=== PATIENT | male | born 1945 | race Two or more races ===

== ENCOUNTER 2023-11-12 16:58 | Inpatient (IN) | payer OTHER ==
[~2023-11-12] VITALS: Ht 182.9 cm; Wt 86.2 kg
[2023-11-12] MEDS ORDERED: SODIUM CHLORIDE 0.9% 500 ML IV ONE (18:30)
[2023-11-12 19:03] LABS: Basophils # (auto) 0.1 10 ^3/uL (0-0.2); Basophils % (auto) 0.7 % (0.0-2.0); Eosinophils # (auto) 0.1 10 ^3/uL (0-0.8); Eosinophils % (auto) 0.9 % (0.0-7.0); Hematocrit 36.9 % (41.0-53.0); Hemoglobin 12.6 g/dL (13.5-17.5); Lymphocytes # (auto) 1.3 10 ^3/uL (0.4-5.4); Lymphocytes % (auto) 14.2 % (10.0-50.0); Mean Corpuscular Hemoglobin 32.2 pg (28.0-32.0); Mean Corpuscular Volume 94.5 fL (80.0-100.0); Monocytes # (auto) 0.8 10 ^3/uL (0-1.3); Monocytes % (auto) 9.3 % (0.0-12.0); Neutrophils # (auto) 6.8 10 ^3/uL (1.6-8.6); Neutrophils % (auto) 74.9 % (37.0-80.0); White Blood Cell 9.1 10^3/uL (4.4-10.8)
[2023-11-12 19:19] LABS: Alanine Aminotransferase 30 U/L (7-40); Albumin 4.6 g/dL (3.2-4.8); Alkaline Phosphatase 75 U/L (46-116); Anion Gap 7 (5-15); Aspartate Aminotransferase 19 U/L (13-40); BUN/Creatinine Ratio 7.6 (10.0-20.0); Bilirubin, Total 0.5 mg/dL (0.2-1.0); Blood Urea Nitrogen 5 mg/dL (9-23); Calcium 9.5 mg/dL (8.5-10.1); Carbon Dioxide 25 mmol/L (20-30); Chloride 92 mmol/L (98-107); Glucose 98 mg/dL (74-106); Potassium 4.2 mmol/L (3.5-5.1); Sodium 124 mmol/L (136-145)
[2023-11-12 19:20] LABS: Total Protein 7.3 g/dL (5.7-8.2)
[2023-11-12 19:28] LABS: INR 1.02 (0.9-1.15); Partial Thromboplastin Time 36.2 SEC (24.5-34.5); Prothrombin Time 10.7 sec (9.3-11.8)
[2023-11-12 19:59] LABS: Erythrocyte Sedimentation Rate 53 mm/hr (0-20)
[2023-11-12] MEDS ORDERED: CLINDAMYCIN 600MG IV 50 ML IV ONE ×2 (20:45→23:52)
[2023-11-12 23:41] VITALS: PULSE 87; RESP 20; O2SAT 95
[2023-11-13] VITALS (8 sets, daily range): BP systolic 138–156; BP diastolic 78–100; PULSE 79–97; RESP 15–20; TEMP 97.6–98.7; O2SAT 94–100
[2023-11-13] MEDS ORDERED: ONDANSETRON HCL 4 MG/2 ML VIAL IV PRN (00:15)
[2023-11-13] MEDS ORDERED: hydrALAZINE HCL 10 MG TAB PO PRN (00:15)
[2023-11-13] MEDS ORDERED: ACETAMINOPHEN 325 MG TAB PO PRN (00:15)
[2023-11-13] MEDS ORDERED: PIPERACILLIN-TAZOB 3.375GM 100 ML IV SCH (00:15)
[2023-11-13] MEDS ORDERED: MORPHINE SULFATE INJ 2 MG/ml SYRG IV PRN (00:15)
[2023-11-13] MEDS ORDERED: VANCOMYCIN PER PHARMACY 0 MG IV SCH (00:15)
[2023-11-13] MEDS ORDERED: VANCOMYCIN 1GM/200ML 250 ML IV ONE ×3 (00:54→22:34)
[2023-11-13] MEDS ORDERED: VANCOMYCIN 1GM/200ML 250 ML IV SCH (01:00)
[2023-11-13] MEDS ORDERED: HYDROcodone-ACET 5/325MG TAB ONE ×3 (02:31→18:18)
[2023-11-13] MEDS: HYDROcodone-ACET 5/325MG TAB PO PRN ×3 (02:32→18:18)
[2023-11-13] MEDS ORDERED: PIPERACILLIN-TAZOB 3.375GM 100 ML IV ONE ×3 (05:05→23:44)
[2023-11-13] MEDS: PIPERACILLIN-TAZOB 3.375GM 100 ML IV SCH ×3 (05:21→23:53)
[2023-11-13] MEDS ORDERED: DEXTROSE (50%) 50ML SYRG IV PRN (06:00)
[2023-11-13 06:15] LABS: Anion Gap 8 (5-15); Carbon Dioxide 24 mmol/L (20-30); Chloride 98 mmol/L (98-107); Potassium 4.1 mmol/L (3.5-5.1)
[2023-11-13 06:16] LABS: Calcium 9.1 mg/dL (8.5-10.1); Sodium 130 mmol/L (136-145)
[2023-11-13 06:21] LABS: BUN/Creatinine Ratio 7.7 (10.0-20.0); Blood Urea Nitrogen 5 mg/dL (9-23); Glucose 114 mg/dL (74-106)
[2023-11-13] MEDS: InsuLIN REG 1unit/0.01ml Soln (100units/ml) SC SCH ×4 (07:00→21:43)
[2023-11-13] MEDS: ACCU-CHEK COMFORT CURVE STRIP VI SCH ×4 (07:05→21:43)
[2023-11-13] MEDS ORDERED: FAMOTIDINE 20 MG TAB PO SCH (10:00)
[2023-11-13] MEDS ORDERED: ENOXAPARIN SOD 40 MG/0.4 ML SYRINGE SC ONE (10:24)
[2023-11-13] MEDS ORDERED: FAMOTIDINE 20 MG TAB ONE (10:31)
[2023-11-13] MEDS: ENOXAPARIN SOD 40 MG/0.4 ML SYRINGE SC SCH (10:35)
[2023-11-13] MEDS: VANCOMYCIN 1GM/200ML 250 ML IV SCH ×2 (13:35→22:38)
[2023-11-13] MEDS ORDERED: HYDROcodone-ACET 10/325MG TAB ONE (15:11)
[2023-11-13] MEDS: HYDROcodone-ACET 10/325MG TAB PO PRN (15:13)
[2023-11-13] MEDS ORDERED: SIMV40TA18 PO (15:43)
[2023-11-13] MEDS ORDERED: FAMO-12 PO (15:43)
[2023-11-13] MEDS ORDERED: METO25TA93 PO (15:43)
[2023-11-13] MEDS ORDERED: ISOS1TAB28 PO (15:43)
[2023-11-13] MEDS ORDERED: LEVO88TA4 PO (15:43)
[2023-11-13] MEDS ORDERED: LOSA50TA46 PO (15:43)
[2023-11-13] MEDS ORDERED: GLIP-110 PO (15:43)
[2023-11-13] MEDS ORDERED: METF-370 PO (15:43)
[2023-11-13] MEDS ORDERED: BUPR-346 PO (15:43)
[2023-11-13] MEDS ORDERED: OXYB5TAB10 GT (15:47)
[2023-11-13] MEDS ORDERED: metFORMIN HYDROCHLORIDE 500 MG TAB ONE (18:12)
[2023-11-13] MEDS: metFORMIN HYDROCHLORIDE 500 MG TAB PO SCH (18:15)
[2023-11-13] MEDS ORDERED: ATORVASTATIN 20 MG TAB ONE (21:38)
[2023-11-13] MEDS: ATORVASTATIN 20 MG TAB PO SCH (21:42)
[2023-11-14] VITALS (7 sets, daily range): BP systolic 107–146; BP diastolic 56–88; PULSE 69–89; RESP 16–20; TEMP 98.1–99.2; O2SAT 95–97
[2023-11-14] MEDS ORDERED: HYDROcodone-ACET 5/325MG TAB ONE ×2 (04:13→13:39)
[2023-11-14] MEDS: HYDROcodone-ACET 5/325MG TAB PO PRN ×3 (04:16→22:01)
[2023-11-14 06:00] LABS: Chloride 98 mmol/L (98-107); Potassium 3.7 mmol/L (3.5-5.1); Sodium 131 mmol/L (136-145)
[2023-11-14 06:01] LABS: Anion Gap 6 (5-15); Calcium 8.7 mg/dL (8.7-10.4); Carbon Dioxide 27 mmol/L (20-30)
[2023-11-14 06:06] LABS: BUN/Creatinine Ratio 7.4 (10.0-20.0); Blood Urea Nitrogen < 5 mg/dL (9-23); Glucose 132 mg/dL (74-106)
[2023-11-14] MEDS ORDERED: metFORMIN HYDROCHLORIDE 500 MG TAB ONE ×2 (06:24→18:04)
[2023-11-14] MEDS ORDERED: LEVOTHYROXINE SODIUM 88 MCG TAB ONE (06:25)
[2023-11-14] MEDS: OXYBUTININ PO SCH (06:26)
[2023-11-14] MEDS: ACCU-CHEK COMFORT CURVE STRIP VI SCH ×4 (06:28→22:01)
[2023-11-14] MEDS: LEVOTHYROXINE SODIUM 88 MCG TAB PO SCH (06:28)
[2023-11-14] MEDS: InsuLIN REG 1unit/0.01ml Soln (100units/ml) SC SCH ×4 (06:30→22:04)
[2023-11-14] MEDS: metFORMIN HYDROCHLORIDE 500 MG TAB PO SCH ×2 (06:35→18:06)
[2023-11-14] MEDS ORDERED: PIPERACILLIN-TAZOB 3.375GM 100 ML IV ONE ×3 (07:01→20:59)
[2023-11-14] MEDS: PIPERACILLIN-TAZOB 3.375GM 100 ML IV SCH ×3 (07:05→21:07)
[2023-11-14] MEDS ORDERED: HYDROcodone-ACET 10/325MG TAB ONE ×2 (09:00→16:50)
[2023-11-14] MEDS ORDERED: VANCOMYCIN 1GM/200ML 250 ML IV ONE ×2 (09:01→18:04)
[2023-11-14] MEDS: HYDROcodone-ACET 10/325MG TAB PO PRN ×2 (09:04→17:04)
[2023-11-14] MEDS: VANCOMYCIN 1GM/200ML 250 ML IV SCH ×2 (09:04→18:14)
[2023-11-14] MEDS: BUPROPION 300 MG PO SCH (10:00)
[2023-11-14] MEDS ORDERED: GLIPIZIDE 5 MG PO SCH (10:00)
[2023-11-14] MEDS ORDERED: glipiZIDE 5 MG TAB ONE (10:48)
[2023-11-14] MEDS ORDERED: ISOSORBIDE MONONITRATE ER 60 MG TAB PO ONE (10:49)
[2023-11-14] MEDS ORDERED: ENOXAPARIN SOD 40 MG/0.4 ML SYRINGE SC ONE (10:49)
[2023-11-14] MEDS ORDERED: buPROPion HCL 100 MG TAB ONE (10:49)
[2023-11-14] MEDS ORDERED: LOSARTAN POTASSIUM 50 MG TAB ONE (10:50)
[2023-11-14] MEDS ORDERED: FAMOTIDINE 20 MG TAB ONE (10:50)
[2023-11-14] MEDS ORDERED: METOPROLOL SUCCINATE XL 50 MG TAB PO ONE (10:50)
[2023-11-14] MEDS ORDERED: buPROPion HCL 100 MG TAB PO ONE (11:00)
[2023-11-14] MEDS ORDERED: glipiZIDE 5 MG TAB PO ONE (11:00)
[2023-11-14] MEDS: GLIPIZIDE 5 MG PO SCH (11:19)
[2023-11-14] MEDS: FAMOTIDINE 20 MG TAB PO SCH (11:20)
[2023-11-14] MEDS: METOPROLOL SUCCINATE XL 50 MG TAB PO SCH (11:22)
[2023-11-14] MEDS: LOSARTAN POTASSIUM 50 MG TAB PO SCH (11:23)
[2023-11-14] MEDS: ISOSORBIDE MONONITRATE ER 60 MG TAB PO SCH (11:23)
[2023-11-14] MEDS: ENOXAPARIN SOD 40 MG/0.4 ML SYRINGE SC SCH (11:24)
[2023-11-14] MEDS ORDERED: ATORVASTATIN 20 MG TAB ONE (20:59)
[2023-11-14] MEDS: ATORVASTATIN 20 MG TAB PO SCH (21:07)
[2023-11-14] MEDS ORDERED: guaiFENesin-DM 100/10mg/5ml SYR ONE (21:47)
[2023-11-14] MEDS ORDERED: InsuLIN REG 1unit/0.01ml Soln (100units/ml) ONE (21:58)
[2023-11-15] VITALS (7 sets, daily range): BP systolic 127–158; BP diastolic 63–80; PULSE 62–83; RESP 16–22; TEMP 97.7–98.5; O2SAT 94–97
[2023-11-15] MEDS: VANCOMYCIN 1GM/200ML 250 ML IV SCH ×2 (04:50→15:36)
[2023-11-15] MEDS: HYDROcodone-ACET 5/325MG TAB PO PRN ×2 (05:01→12:20)
[2023-11-15] MEDS: PIPERACILLIN-TAZOB 3.375GM 100 ML IV SCH ×3 (06:24→21:37)
[2023-11-15] MEDS: LEVOTHYROXINE SODIUM 88 MCG TAB PO SCH (06:27)
[2023-11-15] MEDS: metFORMIN HYDROCHLORIDE 500 MG TAB PO SCH ×2 (06:27→17:22)
[2023-11-15] MEDS: ACCU-CHEK COMFORT CURVE STRIP VI SCH ×4 (06:27→21:41)
[2023-11-15] MEDS: GLIPIZIDE 5 MG PO SCH (06:29)
[2023-11-15] MEDS: OXYBUTININ PO SCH (06:30)
[2023-11-15] MEDS: InsuLIN REG 1unit/0.01ml Soln (100units/ml) SC SCH ×4 (06:33→21:41)
[2023-11-15 06:36] LABS: Chloride 96 mmol/L (98-107); Potassium 3.8 mmol/L (3.5-5.1); Sodium 130 mmol/L (136-145)
[2023-11-15 06:37] LABS: Anion Gap 7 (5-15); Carbon Dioxide 27 mmol/L (20-30)
[2023-11-15 06:42] LABS: BUN/Creatinine Ratio 7.7 (10.0-20.0); Blood Urea Nitrogen 6 mg/dL (9-23); Glucose 143 mg/dL (74-106)
[2023-11-15] MEDS: HYDROcodone-ACET 10/325MG TAB PO PRN ×2 (09:26→21:46)
[2023-11-15] MEDS: BUPROPION 300 MG PO SCH (10:00)
[2023-11-15] MEDS ORDERED: buPROPion HCL 100 MG TAB PO SCH (10:00)
[2023-11-15] MEDS: LOSARTAN POTASSIUM 50 MG TAB PO SCH (12:13)
[2023-11-15] MEDS: ENOXAPARIN SOD 40 MG/0.4 ML SYRINGE SC SCH (12:13)
[2023-11-15] MEDS: ISOSORBIDE MONONITRATE ER 60 MG TAB PO SCH (12:14)
[2023-11-15] MEDS: FAMOTIDINE 20 MG TAB PO SCH (12:14)
[2023-11-15] MEDS: METOPROLOL SUCCINATE XL 50 MG TAB PO SCH (12:14)
[2023-11-15] MEDS: ATORVASTATIN 20 MG TAB PO SCH (21:36)
[2023-11-16] MEDS: VANCOMYCIN 1GM/200ML 250 ML IV SCH ×2 (01:00→11:52)
[2023-11-16 05:00] VITALS: BP 130/70; PULSE 69; RESP 22; TEMP 97.7; O2SAT 97
[2023-11-16] MEDS: PIPERACILLIN-TAZOB 3.375GM 100 ML IV SCH ×3 (05:40→22:35)
[2023-11-16] MEDS: LEVOTHYROXINE SODIUM 88 MCG TAB PO SCH (06:21)
[2023-11-16] MEDS: metFORMIN HYDROCHLORIDE 500 MG TAB PO SCH ×2 (06:21→18:00)
[2023-11-16] MEDS: InsuLIN REG 1unit/0.01ml Soln (100units/ml) SC SCH ×4 (06:22→22:59)
[2023-11-16] MEDS: ACCU-CHEK COMFORT CURVE STRIP VI SCH ×4 (06:22→22:36)
[2023-11-16] MEDS: HYDROcodone-ACET 5/325MG TAB PO PRN ×2 (06:23→14:17)
[2023-11-16] MEDS: OXYBUTININ PO SCH (06:27)
[2023-11-16] MEDS: GLIPIZIDE 5 MG PO SCH (06:27)
[2023-11-16 08:00] VITALS: PULSE 74
[2023-11-16 08:53] VITALS: BP 131/80; PULSE 75; RESP 18; TEMP 97.8; O2SAT 97
[2023-11-16] MEDS: ISOSORBIDE MONONITRATE ER 60 MG TAB PO SCH (09:37)
[2023-11-16] MEDS: LOSARTAN POTASSIUM 50 MG TAB PO SCH (09:37)
[2023-11-16] MEDS: FAMOTIDINE 20 MG TAB PO SCH (09:37)
[2023-11-16] MEDS: BUPROPION 300 MG PO SCH (09:37)
[2023-11-16] MEDS: ENOXAPARIN SOD 40 MG/0.4 ML SYRINGE SC SCH (09:37)
[2023-11-16] MEDS: METOPROLOL SUCCINATE XL 50 MG TAB PO SCH (09:38)
[2023-11-16 12:58] VITALS: BP 129/79; PULSE 78; RESP 18; TEMP 97.9; O2SAT 97
[2023-11-16 20:00] VITALS: PULSE 69
[2023-11-16 22:00] VITALS: BP 122/72; PULSE 76; RESP 16; TEMP 98.2; O2SAT 96
[2023-11-16] MEDS: ATORVASTATIN 20 MG TAB PO SCH (22:36)
[2023-11-17] VITALS (8 sets, daily range): BP systolic 93–150; BP diastolic 57–76; PULSE 57–80; RESP 14–20; TEMP 97.6–98.5; O2SAT 91–97
[2023-11-17] MEDS: PIPERACILLIN-TAZOB 3.375GM 100 ML IV SCH ×3 (05:25→22:34)
[2023-11-17] MEDS: ACCU-CHEK COMFORT CURVE STRIP VI SCH ×4 (05:56→22:00)
[2023-11-17] MEDS: OXYBUTININ PO SCH (05:57)
[2023-11-17] MEDS: InsuLIN REG 1unit/0.01ml Soln (100units/ml) SC SCH ×4 (05:57→22:31)
[2023-11-17] MEDS: metFORMIN HYDROCHLORIDE 500 MG TAB PO SCH ×2 (05:57→18:00)
[2023-11-17] MEDS: LEVOTHYROXINE SODIUM 88 MCG TAB PO SCH (05:57)
[2023-11-17] MEDS: GLIPIZIDE 5 MG PO SCH (05:58)
[2023-11-17 07:03] LABS: INR 1.04 (0.9-1.15); Prothrombin Time 10.9 sec (9.3-11.8)
[2023-11-17] MEDS: HYDROcodone-ACET 10/325MG TAB PO PRN ×2 (08:40→22:48)
[2023-11-17] MEDS: ENOXAPARIN SOD 40 MG/0.4 ML SYRINGE SC SCH (10:00)
[2023-11-17] MEDS: FAMOTIDINE 20 MG TAB PO SCH (10:15)
[2023-11-17] MEDS: BUPROPION 300 MG PO SCH (10:15)
[2023-11-17] MEDS: ISOSORBIDE MONONITRATE ER 60 MG TAB PO SCH (10:16)
[2023-11-17] MEDS: LOSARTAN POTASSIUM 50 MG TAB PO SCH (10:16)
[2023-11-17] MEDS: METOPROLOL SUCCINATE XL 50 MG TAB PO SCH (10:17)
[2023-11-17] MEDS ORDERED: IODIXANOL 320MG/ML 100ML BTL IV ONE ×3 (14:15→16:04)
[2023-11-17] MEDS ORDERED: LIDOCAINE 2%HCL (LOCAL ANESTH.) INJ 20ML MDV ONE (14:15)
[2023-11-17] MEDS ORDERED: ANGIOMAX 250 MG VIAL IV ONE ×3 (14:50→18:16)
[2023-11-17] MEDS ORDERED: MIDAZOLAM HCL 2MG/2ML 2ml VIAL (1mg/ml) ONE ×2 (14:51→16:57)
[2023-11-17] MEDS ORDERED: SODIUM CHL 0.9% 50 ML ONE ×3 (14:51→18:16)
[2023-11-17] MEDS ORDERED: fentaNYL CITRATE 100 MCG/2 ML VL ONE (14:51)
[2023-11-17] MEDS ORDERED: HYDROmorphone HCL 2 MG/ML VL/or syr ONE (16:23)
[2023-11-17] MEDS ORDERED: CLOPIDOGREL 300 MG TAB ONE (19:08)
[2023-11-17] MEDS ORDERED: ASPirin 325 MG TAB ONE (19:08)
[2023-11-17 21:54] LABS: Basophils # (auto) 0 10 ^3/uL (0-0.2); Basophils % (auto) 0.4 % (0.0-2.0); Eosinophils # (auto) 0.2 10 ^3/uL (0-0.8); Eosinophils % (auto) 1.8 % (0.0-7.0); Hematocrit 32.9 % (41.0-53.0); Hemoglobin 11.4 g/dL (13.5-17.5); Lymphocytes # (auto) 0.7 10 ^3/uL (0.4-5.4); Lymphocytes % (auto) 8.2 % (10.0-50.0); Mean Corpuscular Hemoglobin 32.9 pg (28.0-32.0); Mean Corpuscular Hgb Conc. 34.5 g/dL (32.0-36.0); Mean Corpuscular Volume 95.3 fL (80.0-100.0); Monocytes # (auto) 0.9 10 ^3/uL (0-1.3); Monocytes % (auto) 9.9 % (0.0-12.0); Neutrophils # (auto) 6.9 10 ^3/uL (1.6-8.6); Neutrophils % (auto) 79.7 % (37.0-80.0); Red Blood Cells 3.46 10^6/uL (4.5-5.90); Red Cell Distribution Width 11.8 % (11.8-14.3); White Blood Cell 8.7 10^3/uL (4.4-10.8)
[2023-11-17] MEDS: ATORVASTATIN 20 MG TAB PO SCH (22:34)
[2023-11-18] VITALS (7 sets, daily range): BP systolic 122–153; BP diastolic 54–78; PULSE 58–77; RESP 13–21; TEMP 97.6–98.9; O2SAT 93–100
[2023-11-18] MEDS: GLIPIZIDE 5 MG PO SCH (05:23)
[2023-11-18] MEDS: LEVOTHYROXINE SODIUM 88 MCG TAB PO SCH (05:23)
[2023-11-18] MEDS: OXYBUTININ PO SCH (05:23)
[2023-11-18] MEDS: PIPERACILLIN-TAZOB 3.375GM 100 ML IV SCH ×3 (05:23→21:21)
[2023-11-18] MEDS: metFORMIN HYDROCHLORIDE 500 MG TAB PO SCH ×2 (05:23→17:35)
[2023-11-18] MEDS: ACCU-CHEK COMFORT CURVE STRIP VI SCH ×4 (05:47→21:33)
[2023-11-18] MEDS: InsuLIN REG 1unit/0.01ml Soln (100units/ml) SC SCH ×4 (05:47→21:43)
[2023-11-18] MEDS: METOPROLOL SUCCINATE XL 50 MG TAB PO SCH (08:22)
[2023-11-18] MEDS: HYDROcodone-ACET 10/325MG TAB PO PRN ×2 (08:24→18:44)
[2023-11-18] MEDS: LOSARTAN POTASSIUM 50 MG TAB PO SCH (08:24)
[2023-11-18] MEDS: ISOSORBIDE MONONITRATE ER 60 MG TAB PO SCH (08:25)
[2023-11-18] MEDS: ASPirin 81 mg TAB PO SCH (08:25)
[2023-11-18] MEDS: FAMOTIDINE 20 MG TAB PO SCH (08:26)
[2023-11-18] MEDS: BUPROPION 300 MG PO SCH (08:33)
[2023-11-18] MEDS: RIVAROXABAN 2.5 MG TAB PO SCH ×2 (09:47→22:00)
[2023-11-18] MEDS: CLOPIDOGREL BISULFATE 75 MG TAB PO SCH (09:47)
[2023-11-18] MEDS ORDERED: BUPIVACAINE HCL 50 ML ONE (11:39)
[2023-11-18] MEDS ORDERED: LIDOCAINE HCL (LOCAL ANESTH.) 0.5 % 50ML MDV IJ ONE (11:39)
[2023-11-18] MEDS ORDERED: DAKINS HALF STR 0.25% (NaHypochlorite) 473 ML TOPICAL SOL TOP ONE (11:45)
[2023-11-18] MEDS ORDERED: MEPERIDINE HCL (25 MG/ML) 1ML VIAL ONE (12:46)
[2023-11-18] MEDS ORDERED: MIDAZOLAM HCL 2MG/2ML 2ml VIAL (1mg/ml) ONE (12:46)
[2023-11-18] MEDS ORDERED: fentaNYL CITRATE 100 MCG/2 ML VL ONE (12:46)
[2023-11-18] MEDS ORDERED: PROPOFOL 10 MG/ML 20 ML IV ONE (13:23)
[2023-11-18] MEDS ORDERED: DexAMETHasone SOD PHOS 10MG/1ML VIAL INJ ONE (13:23)
[2023-11-18] MEDS ORDERED: ceFAZolin 1GM VL ONE (13:24)
[2023-11-18] MEDS ORDERED: MIDAZOLAM HCL 2MG/2ML 2ml VIAL (1mg/ml) IV PRN (15:00)
[2023-11-18] MEDS ORDERED: ONDANSETRON HCL 4 MG/2 ML VIAL IV PRN (15:00)
[2023-11-18] MEDS ORDERED: HYDROmorphone HCL 2 MG/ML VL/or syr IV PRN (15:00)
[2023-11-18] MEDS ORDERED: LABETALOL HCL 5 MG/ML 4ML SYRINGE IV PRN (15:00)
[2023-11-18] MEDS ORDERED: ePHEDrine SULFATE 50 MG/ML AMP IV PRN (15:00)
[2023-11-18] MEDS ORDERED: MORPHINE SULFATE 4 MG/ML SYR/VIAL IV PRN (15:00)
[2023-11-18] MEDS ORDERED: VANCOMYCIN 1GM/200ML 200 ML IV ONE (16:00)
[2023-11-18] MEDS: HYDROcodone-ACET 5/325MG TAB PO PRN (21:21)
[2023-11-18] MEDS: ATORVASTATIN 20 MG TAB PO SCH (21:21)
[2023-11-19] VITALS (7 sets, daily range): BP systolic 113–167; BP diastolic 64–81; PULSE 64–92; RESP 15–18; TEMP 97.3–98.3; O2SAT 92–98
[2023-11-19] MEDS: HYDROcodone-ACET 10/325MG TAB PO PRN ×4 (02:51→21:38)
[2023-11-19] MEDS: LEVOTHYROXINE SODIUM 88 MCG TAB PO SCH (05:45)
[2023-11-19] MEDS: metFORMIN HYDROCHLORIDE 500 MG TAB PO SCH ×2 (05:45→17:38)
[2023-11-19] MEDS: PIPERACILLIN-TAZOB 3.375GM 100 ML IV SCH ×3 (05:45→21:38)
[2023-11-19] MEDS: GLIPIZIDE 5 MG PO SCH (05:46)
[2023-11-19] MEDS: OXYBUTININ PO SCH (05:46)
[2023-11-19] MEDS: ACCU-CHEK COMFORT CURVE STRIP VI SCH ×4 (05:46→21:38)
[2023-11-19] MEDS: InsuLIN REG 1unit/0.01ml Soln (100units/ml) SC SCH ×4 (05:53→21:43)
[2023-11-19] MEDS: CLOPIDOGREL BISULFATE 75 MG TAB PO SCH (09:26)
[2023-11-19] MEDS: ASPirin 81 mg TAB PO SCH (09:26)
[2023-11-19] MEDS: ISOSORBIDE MONONITRATE ER 60 MG TAB PO SCH (09:27)
[2023-11-19] MEDS: FAMOTIDINE 20 MG TAB PO SCH (09:27)
[2023-11-19] MEDS: LOSARTAN POTASSIUM 50 MG TAB PO SCH (09:28)
[2023-11-19] MEDS: METOPROLOL SUCCINATE XL 50 MG TAB PO SCH (09:28)
[2023-11-19] MEDS: BUPROPION 300 MG PO SCH (09:29)
[2023-11-19] MEDS: RIVAROXABAN 2.5 MG TAB PO SCH ×2 (09:29→21:39)
[2023-11-19] MEDS: ATORVASTATIN 20 MG TAB PO SCH (21:38)
[2023-11-20 05:00] VITALS: BP 153/79; PULSE 77; RESP 18; TEMP 97.5; O2SAT 98
[2023-11-20] MEDS: PIPERACILLIN-TAZOB 3.375GM 100 ML IV SCH ×2 (05:22→14:03)
[2023-11-20] MEDS: LEVOTHYROXINE SODIUM 88 MCG TAB PO SCH (06:20)
[2023-11-20] MEDS: ACCU-CHEK COMFORT CURVE STRIP VI SCH ×2 (06:21→11:38)
[2023-11-20] MEDS: GLIPIZIDE 5 MG PO SCH (06:21)
[2023-11-20] MEDS: metFORMIN HYDROCHLORIDE 500 MG TAB PO SCH (06:21)
[2023-11-20] MEDS: OXYBUTININ PO SCH (06:21)
[2023-11-20] MEDS: InsuLIN REG 1unit/0.01ml Soln (100units/ml) SC SCH ×2 (06:26→11:30)
[2023-11-20 08:00] VITALS: PULSE 75; PULSE 84; RESP 18; O2SAT 94
[2023-11-20 09:00] VITALS: BP 169/83; PULSE 75; RESP 18; TEMP 97.5; O2SAT 94
[2023-11-20] MEDS: HYDROcodone-ACET 10/325MG TAB PO PRN (09:06)
[2023-11-20] MEDS: LOSARTAN POTASSIUM 50 MG TAB PO SCH (09:19)
[2023-11-20] MEDS: METOPROLOL SUCCINATE XL 50 MG TAB PO SCH (09:19)
[2023-11-20] MEDS: ISOSORBIDE MONONITRATE ER 60 MG TAB PO SCH (09:20)
[2023-11-20] MEDS: ASPirin 81 mg TAB PO SCH (09:21)
[2023-11-20] MEDS: CLOPIDOGREL BISULFATE 75 MG TAB PO SCH (09:21)
[2023-11-20] MEDS: FAMOTIDINE 20 MG TAB PO SCH (09:21)
[2023-11-20] MEDS: BUPROPION 300 MG PO SCH (09:22)
[2023-11-20] MEDS: RIVAROXABAN 2.5 MG TAB PO SCH (09:23)
[2023-11-20] MEDS ORDERED: DAKINS QUARTER STR 0.125% (NaHypochlorite) 473 ML TOPICAL SOL TOP SCH (10:00)
[2023-11-20] MEDS ORDERED: VANCOMYCIN 1GM/200ML 200 ML IV ONE (11:00)
[2023-11-20] MEDS ORDERED: RIVA2.5T PO (12:39)
[2023-11-20] MEDS ORDERED: ASPI-325 PO (12:39)
[2023-11-20] MEDS ORDERED: AUG875T PO (12:39)
[2023-11-20 13:00] VITALS: BP 133/88; PULSE 62; RESP 16; TEMP 98.1; O2SAT 95
[2023-11-20 15:00] VITALS: BP 133/88; PULSE 62; RESP 16; TEMP 98.1; O2SAT 95
== END 2023-11-20 15:51 | disposition home health service (06) | DRG 240 ==
LOC: ER 16:58 → TELE 11-13 00:22 → TELE-EAST 11-13 03:45
PROVIDERS: ADMIT Nurse Practitioner Family; ATTEND Nurse Practitioner Family
PROC: 047M3ZZ Dilation of Right Popliteal Artery, Percutaneous Approach (ICD-10-PCS; 2023-11-17)
PROC: 047P34Z Dilation of Right Anterior Tibial Artery with Drug-eluting Intraluminal Device, Percutaneous Approach (ICD-10-PCS; 2023-11-17)
PROC: 047K3ZZ Dilation of Right Femoral Artery, Percutaneous Approach (ICD-10-PCS; 2023-11-17)
PROC: B41GYZZ Fluoroscopy of Left Lower Extremity Arteries using Other Contrast (ICD-10-PCS; 2023-11-17)
PROC: B41FYZZ Fluoroscopy of Right Lower Extremity Arteries using Other Contrast (ICD-10-PCS; 2023-11-17)
PROC: 0Y6M0Z0 Detachment at Right Foot, Complete, Open Approach (ICD-10-PCS; principal; 2023-11-18 13:01)
DX: E11.52 Type 2 diabetes mellitus with diabetic peripheral angiopathy with gangrene (principal); E87.1 Hypo-osmolality and hyponatremia; L03.115 Cellulitis of right lower limb; M86.171 Other acute osteomyelitis, right ankle and foot; E11.69 Type 2 diabetes mellitus with other specified complication; E78.5 Hyperlipidemia, unspecified; I10 Essential (primary) hypertension; I25.2 Old myocardial infarction; E03.9 Hypothyroidism, unspecified; Z87.891 Personal history of nicotine dependence; Z91.199 Patient's noncompliance with other medical treatment and regimen due to unspecified reason; Z95.5 Presence of coronary angioplasty implant and graft; Z82.49 Family history of ischemic heart disease and other diseases of the circulatory system; Z83.3 Family history of diabetes mellitus
CPT/HCPCS: 36415; 37224; 37230; 71045; 73700; 73718; 75716; 80048; 80053; 80202; 82565; 82962; 83605; 85025; 85610; 85652; 85730; 86850; 86900; 86901; 87040; 87070; 87075; 87077; 87186; 87205; 93306; 93926; 93970; 97110; 97163; 99152; 99153; C1725; C1769; C1874; C2625; G0378; J0690; J1100; J1815; J2250; J2543; J2704; J3490; Q9967